=== PATIENT | male | born 1990 | race Two or more races ===

== ENCOUNTER → 2020-08-17 | Day surgery (SDC) | payer OTHER ==
[~2020-08-17] VITALS: Ht 160 cm; Wt 128.4 kg
[2020-08-17] VITALS (8 sets, daily range): BP systolic 119–134; BP diastolic 76–89
[~2020-08-17] MED LIST: EFFEXOR XR150 MG ORAL; HYDROCHLOROTHIA50 MG ORAL; LORATADINE10 M2 PO; LR 1000ml ONE; Lidocaine 1% MPF 10mg/ml 5ml ONE
--- NOTE | 2020-08-17 07:00 | Anethesia Preoperative Eval ---
Anesthesia Pre-op PMH/ROS General Date of Evaluation: Aug 17, 2020 Time of Evaluation: 07:00 Anesthesiologist: morgan ASA Score: ASA 3 Mallampati Score Class I : Soft palate, uvula, fauces, pillars visible Class II: Soft palate, uvula, fauces visible Class III: Soft palate, base of uvula visible Class IV: Only hard plate visible Mallampati Classification: Class III Surgeon: Stella Diagnosis: GERD Surgical Procedure: EGD Anesthesia History: none Family History: no anesthesia problems Allergies: Coded Allergies: No Known Allergies (Unverified , 08/17/20) Medications: see eMAR Patient NPO?: Yes NPO Date: Aug 17, 2020 NPO Time: 00:01 Past Medical History Cardiovascular: Denies: HTN, CAD, VT, valve dz, arrhythmia, other Pulmonary: Denies: asthma, COPD, GRANT, other Gastrointestinal/Genitourinary: Reports: GERD Neurologic/Psychiatric: Denies: dementia, CVA, depression/anxiety, TIA, other Endocrine: Denies: DM, hypothyroidism, steroids, other HEENT: Denies: cataract (L), cataract (R), glaucoma, [place] (L), [place] (R), other Hematology/Immune: Denies: anemia, DVT, bleeding disorder, other Musculoskeletal/Integumentary: Denies: OA, RA, DJD, DDD, edema, other Other: obesity Anesthesia Pre-op Phys. Exam Physician Exam Last Vital Signs Date Time Temp Pulse Resp B/P (MAP) Pulse Ox O2 Delivery O2 Flow Rate FiO2 08/17/20 06:55 97.0 100 20 131/89 100 Room Air Constitutional: NAD Neurologic: CN 2-12 intact Cardiovascular: RRR Respiratory: CTA Gastrointestinal: S/NT/ND Airway Exam Mallampati Classification 3 Mallampati Score: Class III MO: limited ROM: limited Dentures: no upper, no lower Anesthesia Pre-op A/P Studies Pre-op Studies: EKG - SR Risk Assessment & Plan Assessment: covid neg Plan: mac Status Change Before Surgery: No Pre-Antibiotics Drug: none Nona Thomas CRNA Aug 17, 2020 07:00
--- NOTE | 2020-08-17 07:11 | Pre-Procedure Note/Attestation ---
Pre-Procedure Note/Attestation Complete Prior to Procedure Planned Procedure: not applicable Procedure Narrative: EGD Indications for Procedure Pre-Operative Diagnosis: UGIB, GERD Attestation I attest that I discussed the nature of the procedure; its benefits; risks and complications; and alternatives (and the risks and benefits of such alternatives), prior to the procedure, with the patient (or the patient's legal human resources hr representative). I attest that, if there was a reasonable possibility of needing a blood transfusion, the patient (or the patient's legal human resources hr representative) was given the [facility] standardized written summary, pursuant to the [place] Blood Safety Act ([place] Health and Safety Code # 1645, as amended). I attest that I re-evaluated the patient just prior to the surgery and that there has been no change in the patient's H&P, except as documented below: Ravinder Mcgee MD Aug 17, 2020 07:11
--- NOTE | 2020-08-17 07:27 | Short Stay Surgery H&P ---
History of Present Illness History of Present Illness Chief Complaint see attached H&P HPI Marko Hollis is a 30 year old male who was admitted on for GERD Patient History Allergies: Coded Allergies: No Known Allergies (Unverified , 08/17/20) Medication History Scheduled Hydrochlorothiazide* (Hydrochlorothiazide*), 50 MG ORAL DAILY, (Reported) Loratadine (Claritin*), 10 MG PO DAILY, (Reported) Venlafaxine Hcl* (Effexor Xr*), 200 MG ORAL DAILY, (Reported) Physical Exam Vital Signs Last Vital Signs Date Time Temp Pulse Resp B/P (MAP) Pulse Ox O2 Delivery O2 Flow Rate FiO2 08/17/20 06:58 Room Air 08/17/20 06:55 97.0 100 20 131/89 100 Plan Attestation Are the patient's medical conditions optimized for surgery? Ravinder Mcgee MD Aug 17, 2020 07:27
--- NOTE | 2020-08-17 07:37 | Endoscopy Procedure Note ---
Endoscopy Procedure Note General Indication for Procedure: UGIB, GERD Procedures Performed: EGD Operative Findings/Diagnosis: Gastric antrum 5mm nodule Specimen: yes Pt Tolerated Procedure Well: Yes Estimated Blood Loss: none Anesthesia Anesthesiologist: CHAUNCEY Anesthesia: moderate sedation Medications Medication Given: see anesthesia record Inserted Devices Implant(s) used?: No GI Core Measures 50 yrs or older w/o bx or poly: Not Applicable 10yrs. F/U recommended: Not Applicable Ravinder Mcgee MD Aug 17, 2020 07:37
--- NOTE | 2020-08-17 07:38 | Brief Operative Note ---
Immediate Post Operative Note Operative Note Chief Complaint: GERD Pre-op Diagnosis: UGIB, GERD Procedure: EGD, bx Post-op Diagnosis: 5 mm antrum nodule Surgeon: lópez Anesthesia: MAC, moderate sedation Specimen: yes Complications: none Condition: stable Fluids: per anesthesia Estimated Blood Loss: none Drains: none Implant(s) used?: No Ravinder Mcgee MD Aug 17, 2020 07:38
--- NOTE | 2020-08-17 07:39 | Immediate Post-Op Evaluation ---
Immediate Post-Op Evalulation Immediate Post-Op Evalulation Procedure: EGD Date of Evaluation: Aug 17, 2020 Time of Evaluation: 07:39 IV Fluids: 300 Blood Pressure Systolic: 128 Blood Pressure Diastolic: 70 Pulse Rate: 89 Respiratory Rate: 14 O2 Sat by Pulse Oximetry: 99 Temperature (Fahrenheit): 97.4 Nausea: No Vomiting: No Complications none Patient Status: awake, reacts, patent Hydration Status: adequate Drug: none Nona Thomas CRNA Aug 17, 2020 07:39
--- NOTE | 2020-08-17 08:35 | 48 Hour Post Anesthesia Eval ---
Post Anesthesia Evaluation Procedure: EGD Date of Evaluation: Aug 17, 2020 Time of Evaluation: 08:33 Blood Pressure Systolic: 124 0: 82 Pulse Rate: 88 Respiratory Rate: 14 O2 Sat by Pulse Oximetry: 98 Airway: patent Nausea: No Vomiting: No Hydration Status: adequate Cardiopulmonary Status: stable Mental Status/LOC: patient returned to baseline Follow-up Care/Observations: na Post-Anesthesia Complications: none Follow-up care needed: N/A Nona Thomas [facility] Aug 17, 2020 08:35
--- NOTE | 2020-08-17 14:00 | Operative Note - Dictated ---
DATE OF OPERATION: 08/17/2020 GASTROENTEROLOGY PROCEDURE REPORT PROCEDURE: Upper gastrointestinal endoscopy with biopsy. SURGEON: Ravinder Mcgee MD. ANESTHESIA: Please see the separate anesthesiologist notes for details. PRE-ENDOSCOPIC DIAGNOSIS: Gastroesophageal reflux symptoms with one episode of upper GI bleed. POST-ENDOSCOPIC DIAGNOSES: 1. Normal esophagus with no visual evidence of ulceration or esophagitis. 2. Umbilicated 5 mm antrum nodule, likely pancreatic rest tissue, status post biopsy removal. 3. Status post random biopsies of the antrum, lower esophagus and mid esophagus. DESCRIPTION OF PROCEDURE: The procedure, its risks, indications, alternatives, and possible complications were explained to the patient and an informed consent was obtained. The patient was then sedated in the left lateral decubitus position and a diagnostic upper endoscope was introduced through oropharynx and advanced to the duodenum without difficulty. The endoscope was then gradually withdrawn and mucosa examined carefully. Examination of the upper gastrointestinal mucosa revealed the findings as described above. The specimen was sent to pathology and the patient was sent to recovery in good condition. COMPLICATIONS: None. ASSESSMENT: This patient's examination did not show any visual evidence of esophagitis or ulceration to explain the patient's symptoms. However, he has been on acid blockade and some of the findings may have been improved and resolved with treatment. Biopsy will be evaluated and the patient will be seen in followup. Given his symptoms of asthma, anti-reflux therapy would likely benefit him on a long-term basis. RECOMMENDATIONS: 1. Resume Pepcid 20 mg daily for now. 2. Follow up biopsy results. 3. Outpatient followup. Thank you for asking me to participate in the care of this patient. Ravinder Mcgee M.D. DR: INOCENCIO JOB#: [id number] CC: Liss Encarnacion DO.
== END | disposition home or self-care (01) ==
LOC: GAS 06:29
DX: K92.2 Gastrointestinal hemorrhage, unspecified (principal); E66.9 Obesity, unspecified; Z68.43 Body mass index [BMI] 50.0-59.9, adult; K29.50 Unspecified chronic gastritis without bleeding; K21.00 Gastro-esophageal reflux disease with esophagitis, without bleeding
CPT/HCPCS: 43239; 94003; J2704; J7120; U0004; 94150